=== PATIENT | female | born 1990 | race Caucasian/White ===

== ENCOUNTER → 2024-12-23 07:58 | Outpatient (REF) | payer BC, SELFPAY | LOC: PNTC 07:58 | PROVIDERS: ATTENDING PHYSICIAN Obstetrics & Gynecology | DX: O09.819 Supervision of pregnancy resulting from assisted reproductive technology, unspecified trimester (principal) | CPT/HCPCS: 59025; 76815 ==

== ENCOUNTER → 2024-12-30 09:06 | Outpatient (REF) | payer BC, SELFPAY | LOC: PNTC 09:06 | PROVIDERS: ATTENDING PHYSICIAN Obstetrics & Gynecology | DX: O09.819 Supervision of pregnancy resulting from assisted reproductive technology, unspecified trimester (principal) | CPT/HCPCS: 59025; 76815 ==

== ENCOUNTER → 2025-01-06 08:04 | Outpatient (REF) | payer BC, SELFPAY | LOC: PNTC 08:04 | PROVIDERS: ATTENDING PHYSICIAN Student in an Organized Health Care Education/Training Program | DX: O09.813 Supervision of pregnancy resulting from assisted reproductive technology, third trimester (principal) | CPT/HCPCS: 59025; 76816 ==

== ENCOUNTER → 2025-01-13 08:03 | Outpatient (REF) | payer BC, SELFPAY | LOC: PNTC 08:03 | PROVIDERS: ATTENDING PHYSICIAN Obstetrics & Gynecology | DX: O09.813 Supervision of pregnancy resulting from assisted reproductive technology, third trimester (principal) | CPT/HCPCS: 59025; 76815 ==

== ENCOUNTER 2025-01-19 19:35 | Inpatient (IN) | payer BC, SELFPAY ==
[2025-01-19 20:04] VITALS: BP 121/85; BMI 22.8
[2025-01-19 20:32] LABS: Hematocrit 38.9 % (37.0-47.0); Hemoglobin 13.1 g/dL (12.0-16.0); Mean Corp Hgb Conc. 33.7 g/dL (33.0-37.0); Mean Corpuscular Volume 94.2 fL (81.0-99.0); Nucleated Red Blood Cells % 0 %; Platelet Count 312 10^3/uL (130-400); Red Cell Dist. Width 12.6 % (11.5-14.5)
[2025-01-19] MEDS: CYTOTEC 25 MICROGRAM PO (20:48)
[2025-01-19] MEDS: LR 1000 IV (22:23)
[2025-01-20] MEDS: CYTOTEC PO ×4 (01:33→15:05)
[2025-01-20] MEDS: STADOL 1 MG IV (02:40)
[2025-01-20] MEDS: PENICILLIN 110 UNITS IV (02:57)
[2025-01-20] MEDS: SUBLIMAZE 100 MCG EPIDURAL (04:42)
[2025-01-20] MEDS: FENTANYL/BUPIVACAINE 100 EPIDURAL ×2 (04:44→13:10)
[2025-01-20] MEDS: PENICILLIN 55 UNITS IV ×2 (07:35→11:34)
[2025-01-20] MEDS: PITOCIN 30 UNITS/NSS 500 ML IV (14:01)
[2025-01-20] MEDS: XYLOCAINE-MPF 1% VIAL 30 ML INFIL (14:56)
[2025-01-20] MEDS: MOTRIN 600 MG PO (18:37)
[2025-01-20] MEDS: COLACE 100 MG PO (19:44)
[2025-01-21] MEDS: MOTRIN 600 MG PO ×4 (00:33→22:40)
--- NOTE | 2025-01-21 02:30 | DOWNTIME ---
There was a [employer] Downtime on 01/21/2025 from 0100 to 01/21/2025 at 0215. Downtime documentation of patient's care, including medication administrations, has been reconciled in the electronic record per guidelines. Refer to the
patient's paper chart under the miscellaneous tab to see printed paper medication records and downtime forms.
[2025-01-21 05:42] LABS: Hematocrit 27.2 % (37.0-47.0); Hemoglobin 9.6 g/dL (12.0-16.0)
[2025-01-21] MEDS: COLACE 100 MG PO ×2 (07:15→20:27)
[2025-01-21] MEDS: PRENATAL PLUS 1 TABLET PO (07:15)
[2025-01-21] MEDS: TYLENOL 650 MG PO ×2 (16:27→22:40)
[2025-01-21] MEDS: FEOSOL 325 MG PO (16:27)
[2025-01-22] MEDS: TYLENOL 650 MG PO (05:06)
[2025-01-22] MEDS: MOTRIN 600 MG PO (05:07)
[2025-01-22] MEDS: COLACE 100 MG PO (08:36)
[2025-01-22] MEDS: FEOSOL 325 MG PO (08:36)
[2025-01-22] MEDS: PRENATAL PLUS 1 TABLET PO (08:36)
[2025-01-23 13:33] LABS: Syphilis/T. pallidum Ab Reflex Negative (Negative)
== END 2025-01-22 13:26 | disposition home or self-care (01) | DRG 807 ==
LOC: LDRP 19:35
PROVIDERS: Obstetrics & Gynecology; ADMITTING PHYSICIAN Obstetrics & Gynecology
PROC: 3E0P7VZ Introduction of Hormone into Female Reproductive, Via Natural or Artificial Opening (ICD-10-PCS; 2025-01-19)
PROC: 0KQM0ZZ Repair Perineum Muscle, Open Approach (ICD-10-PCS; 2025-01-20)
PROC: 10E0XZZ Delivery of Products of Conception, External Approach (ICD-10-PCS; 2025-01-20)
DX: O99.824 Streptococcus B carrier state complicating childbirth (principal); Z37.0 Single live birth; O70.1 Second degree perineal laceration during delivery; Z3A.39 39 weeks gestation of pregnancy; Z80.3 Family history of malignant neoplasm of breast; Z79.890 Hormone replacement therapy
CPT/HCPCS: 36415; 85014; 85018; 85025; 86780; 86850; 86900; 86901